=== PATIENT | male | born 2000 | race Caucasian/White ===

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

== ENCOUNTER → 2021-11-13 | Outpatient (CLI) | payer BC ==
[~2021-11-13] MED LIST changes: +ONDA4
== END | disposition home or self-care (01) ==
LOC: LAB 19:45 → LAB SHORT 19:45
DX: J02.9 Acute pharyngitis, unspecified (principal)
CPT/HCPCS: 87081

== ENCOUNTER → 2022-10-06 | Outpatient (CLI) | payer BC, OTHER ==
[2022-10-09 01:07] LABS: CHLAMYDIA TRACHOMATIS, NAA Negative (Negative)
== END | disposition home or self-care (01) ==
LOC: LAB SHORT 16:42 → LAB 16:42
PROVIDERS: Physician Assistant
DX: Z20.9 Contact with and (suspected) exposure to unspecified communicable disease (principal)
CPT/HCPCS: 87491; 87591

== ENCOUNTER → 2024-11-15 | Outpatient (CLI) | payer BC, OTHER ==
[2024-11-16 22:28] LABS: HSV 1 GLYCOPROTEIN G AB, IGG 0.26 IV (<=0.89); HSV 2 GLYCOPROTEIN G AB, IGG 0.23 IV (<=0.89)
== END ==
LOC: LAB SHORT 09:54 → LAB 09:54
PROVIDERS: Physician Assistant
DX: N34.1 Nonspecific urethritis (principal)
CPT/HCPCS: 86695; 86696